=== PATIENT | female | born 2000 | race Caucasian/White ===

== ENCOUNTER 2022-02-18 13:00 | Outpatient (RCR) | payer OTHER, BC, SELFPAY | END 2022-02-18 14:18 | disposition home or self-care (01) | LOC: HO.PTCHIC 13:00 | PROVIDERS: PCP Pediatrics; Visit Provider Pediatrics | DX: R27.0 Ataxia, unspecified (principal) | CPT/HCPCS: 97110; 97112; 97163 ==

== ENCOUNTER 2022-06-18 10:00 | Outpatient (RCR) | payer OTHER, BC, SELFPAY | END 2022-07-21 17:16 | disposition home or self-care (01) | LOC: HO.PTCHIC 10:00 | PROVIDERS: Visit Provider Pediatrics | DX: R27.0 Ataxia, unspecified (principal) | CPT/HCPCS: 97110; 97163; 97530 ==

== ENCOUNTER 2022-11-06 10:00 | Outpatient (RCR) | payer BC, SELFPAY | END 2022-11-06 10:44 | disposition home or self-care (01) | LOC: HO.PTCHIC 10:00 | PROVIDERS: PCP Pediatrics; Visit Provider Orthopaedic Surgery Hand Surgery | DX: S53.104D Unspecified dislocation of right ulnohumeral joint, subsequent encounter (principal) | CPT/HCPCS: 97110; 97140; 97163 ==

== ENCOUNTER 2023-04-16 09:00 | Outpatient (RCR) | payer BC, OTHER, SELFPAY | END 2023-04-16 10:17 | disposition home or self-care (01) | LOC: HO.PTCHIC 09:00 | PROVIDERS: PCP Pediatrics; Visit Provider Psychiatry & Neurology Neurology | DX: R26.9 Unspecified abnormalities of gait and mobility (principal); Z91.81 History of falling | CPT/HCPCS: 97110; 97112; 97163; 97530 ==